=== PATIENT | female | born 1975 | race Caucasian/White ===

== ENCOUNTER 2017-02-11 21:00 | Emergency (ER) | payer MEDICAID, OTHER, SELFPAY ==
[~2017-02-11] VITALS: Ht 167.6 cm; Wt 112.9 kg
[2017-02-11 21:52] LABS: HEMATOCRIT 40.2 % (34.6-47.8); HEMOGLOBIN 12.9 g/dL (11.7-16.4); WHITE BLOOD COUNT 12.7 x10^3/uL (3.4-10)
[2017-02-11 22:01] LABS: BLOOD UREA NITROGEN 8 mg/dL (7-18)
[2017-02-11 23:57] VITALS: BP 135/78
== END 2017-02-11 23:58 | disposition home or self-care (01) ==
LOC: ED 23:15
DX: N93.8 Other specified abnormal uterine and vaginal bleeding (principal); F32.9 Major depressive disorder, single episode, unspecified; F41.9 Anxiety disorder, unspecified
CPT/HCPCS: 36415; 76830; 80048; 82040; 84703; 85025; 99285

== ENCOUNTER → 2017-04-19 | Outpatient (CLI) | payer OTHER | END | disposition home or self-care (01) | LOC: CFH 09:54 | PROVIDERS: ATTEND Nurse Practitioner Family | DX: Z12.31 Encounter for screening mammogram for malignant neoplasm of breast (principal) | CPT/HCPCS: G0202 ==